=== PATIENT | female | born 1960 | race Caucasian/White ===

== ENCOUNTER 2020-12-07 11:50 | Outpatient (CLI) | payer OTHER, SELFPAY ==
--- NOTE | ~2020-12-07 | XR_ITS ---
EXAMINATION: XR knee RT 3V EXAM DATE: 12/07/2020 12:26 INDICATION: Right knee pain, no known injury. TECHNIQUE: Three projections of the right knee. There is no prior study for comparison. FINDINGS: No evidence osteochondral defect or joint body in the right knee joint. No joint effusion. There is right patellar mild lateral subluxation and mild to moderate patellofemoral compartment [place] sara osteoarthritis. Mild osteoarthritis at the other compartments. There are no acute fractures or d islocations identified. There is no subcutaneous gas. The soft tissue is unremarkable. There are no radiopaque foreign bodies. IMPRESSION: 1. 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 2. Mild lateral patellar subluxation. Reviewed, dictated and finalized at location A.
--- NOTE | ~2020-12-07 | US_ITS ---
EXAMINATION: US venous doppler LE RT EXAM DATE: 12/07/2020 12:24 INDICATION: M79.604 - Pain in right leg. TECHNIQUE: Multiple grayscale, color flow and Doppler images of the right lower extremity deep venous system were obtained and reviewed. There is no prior study for comparison. FINDINGS: The right common femoral, femoral and profunda veins demonstrate normal color flow, respira tory variation, augmentation and compressibility. Compressibility, color flow confirmed within the r ight popliteal, posterior tibial, peroneal, and greater saphenous veins. IMPRESSION: 1. No right lower extremity deep venous thrombosis. Reviewed, dictated and finalized at location A.
== END 2020-12-07 11:51 | disposition home or self-care (01) ==
PROVIDERS: PCP Family Medicine; Visit Provider Family Medicine
DX: M79.604 Pain in right leg (principal); M17.11 Unilateral primary osteoarthritis, right knee; S83.011A Lateral subluxation of right patella, initial encounter
CPT/HCPCS: 73562; 93971